=== PATIENT | male | born 1980 | race African-American/Black ===

== ENCOUNTER 2023-11-22 09:38 | Emergency (ER) | payer OTHER ==
[~2023-11-22] VITALS: Ht 180.3 cm; Wt 86.0 kg
[2023-11-22 09:40] VITALS: O2SAT 98
[2023-11-22] MEDS ORDERED: METH-653 MT (10:38)
[2023-11-22] MEDS ORDERED: IBUP-2029 MT (10:39)
[2023-11-22 10:49] VITALS: BP 105/71; PULSE 67; RESP 18; TEMP 97.5
== END 2023-11-22 10:51 | disposition home or self-care (01) ==
LOC: ER 09:38
DX: M54.50 Low back pain, unspecified (principal); E78.00 Pure hypercholesterolemia, unspecified
CPT/HCPCS: 99283